=== PATIENT | female | born 1995 | race Caucasian/White ===

== ENCOUNTER 2021-08-23 21:15 | Emergency (ER) | payer SELFPAY ==
[~2021-08-23] VITALS: Ht 162.6 cm; Wt 55.0 kg
[2021-08-23 22:31] VITALS: BP 131/81
== END 2021-08-24 00:23 | disposition home or self-care (01) ==
LOC: EMS 21:17
DX: M25.512 Pain in left shoulder (principal); M25.562 Pain in left knee; V03.90XA Pedestrian on foot injured in collision with car, pick-up truck or van, unspecified whether traffic or nontraffic accident, initial encounter; Y93.89 Activity, other specified; Y92.89 Other specified places as the place of occurrence of the external cause; Y99.8 Other external cause status
CPT/HCPCS: 99284; 73030-TC; 73562-TC; Z7502